=== PATIENT | male | born 1965 | race Caucasian/White ===

== ENCOUNTER 2016-08-29 15:41 | Emergency (ER) | payer OTHER ==
[~2016-08-29] VITALS: Ht 172.7 cm; Wt 135.0 kg
[2016-08-29 15:46] VITALS: BP 119/71
[2016-08-29] MEDS ORDERED: LIDOCAINE 2% MDV 20 ML VIAL As Ordered ONE (16:51)
[2016-08-29] MEDS ORDERED: LIDOCAINE 2% MDV 20 ML VIAL SC ONE (17:00)
[2016-08-29] MEDS ORDERED: KEFL500C17 PO (17:12)
[2016-08-29] MEDS ORDERED: CEPHALEXIN 500 MG CAP PO ONE (17:15)
== END 2016-08-29 17:51 | disposition home or self-care (01) ==
LOC: M ED 15:41
DX: S60.352A Superficial foreign body of left thumb, initial encounter (principal); J43.9 Emphysema, unspecified; I34.1 Nonrheumatic mitral (valve) prolapse; W45.8XXA Other foreign body or object entering through skin, initial encounter; Y92.008 Other place in unspecified non-institutional (private) residence as the place of occurrence of the external cause; Y99.9 Unspecified external cause status; Y93.9 Activity, unspecified; Z88.1 Allergy status to other antibiotic agents